=== PATIENT | male | born 1965 | race Caucasian/White ===

== ENCOUNTER 2018-12-19 09:38 | Day surgery (SDC) | payer BC, OTHER ==
[~2018-12-19 09:38] MED LIST: Acetaminophen/HYDROcodone 325-5 MG Tab PO PRN; Lactated Ringers 1,000 ML IV SCH; Midazolam 1 MG/ML 2 ML SDV ONE; Propofol 200 MG/20 ML SDV ONE; ceFAZolin 2 GM in Premix Bag 1 BAG IV SCH; fentaNYL 100 MCG/2 ML SDV ONE
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
[2018-12-19] MEDS ORDERED: Sodium Chloride 0.9% 20 ML ONE (10:45)
[2018-12-19] MEDS ORDERED: ceFAZolin 1 GM Vial ONE (10:45)
[2018-12-19] MEDS ORDERED: Bupivacaine 0.25% 10 ML SDV ONE (10:57)
--- NOTE | 2018-12-19 12:21 | PCM48HPAN ---
Post Anesthesia Note - EVALUATION WITHIN 48HRS OF ANESTHETIC Vital Signs in Normal Range: Yes Patient Participated in Evaluation: Yes Respiratory Function Stable: Yes Airway Patent: Yes Cardiovascular Function Stable: Yes Hydration Status Stable: Yes Pain Control Satisfactory: Yes Nausea and Vomiting Control Satisfactory: Yes Mental Status Recovered: Yes Resp Rate: 16
--- NOTE | 2018-12-19 12:48 | PCM.OPNOTE ---
- General Post-Op/Procedure Note Date of Surgery/Procedure: 12/19/18 Operative Procedure(s): L CTR Post-Op Diagnosis: L CTS Anesthesia Technique: Local, Moderate Sedation Primary Surgeon: Pamela Guillen Labor Contract Analyst: Sandra Leon EBL in mLs: 5 Condition: Good Free Text/Narrative:: tt= 5 min # [id number] Intake & Output 12/18/18 12/19/18 12/19/18 22:59 06:59 14:59 Intake Total 200 Balance 200
--- NOTE | 2018-12-20 06:29 | OR ---
SURGEON: Pamela Guillen MD DATE OF PROCEDURE: 12/19/2018 PREOPERATIVE DIAGNOSIS: Left carpal tunnel syndrome. POSTOPERATIVE DIAGNOSIS: Left carpal tunnel syndrome. PROCEDURE: Left carpal tunnel release, open. PRIMARY SURGEON: Pamela Guillen MD. COOK MESS: DARRYN Ballesteros. ANESTHESIA: Local with sedation. ESTIMATED BLOOD LOSS: 5 mL. TOURNIQUET TIME: 5 minutes. COMPLICATIONS: None. DVT PROPHYLAXIS: Not indicated. IMPLANTS USED: None. BRIEF HISTORY: This is a 53-year-old male who has had complaint of progressive left wrist pain. EMG/nerve conduction studies did show evidence of carpal tunnel syndrome. Due to his lack of response to conservative treatment, I did recommend surgical intervention. The risks and goals of the procedure were discussed with the patient and were documented preoperatively. He agreed to proceed. He has recently undergone a left shoulder rotator cuff repair and care was taken not to abduct or move the shoulder significantly throughout the procedure. DESCRIPTION OF PROCEDURE: The patient was properly identified and brought to the operating room. The patient was transferred from the operating room cart and placed on the operating room table in the supine position. Sedation was administered. After adequate sedation was achieved, a well-padded tourniquet was applied to the left forearm. The upper extremity was then prepped in standard fashion using ChloraPrep solution. It was then sterilely draped. A time-out was performed to ensure correct site and procedure. Preoperative antibiotics were given. The surgical site had been marked preoperatively. A mixture of 1% Lidocaine and 0.25% Marcaine were injected along the area of anticipated incision. An Esmarch was used to exsanguinate the left upper extremity and the tourniquet was inflated to 200 millimeters of mercury. A fifteen blade scalpel used to make an incision over the volar aspect of the hand. The subcutaneous tissues and palmar fascia were incised down to the level of the transverse carpal ligament. Transverse carpal ligament was then incised. Care was taken to release the ligament distally to the level of fat and proximally into the forearm. At the completion, we had good decompression of the median nerve. No other abnormalities were identified. The wound was then copiously irrigated with saline solution. The tourniquet was deflated. Electrocautery was used to maintain hemostasis. The incision site was closed with 4-0 nylon. Xeroform gauze was placed over the wound and a bulky dressing was applied. The patient was awakened from the sedation and transferred back to the operating room cart. The patient was brought to the recovery room in stable condition. All needle and sponge counts were correct. TERESITA RUSS /[id number]
== END 2018-12-19 12:35 | disposition home or self-care (01) ==
LOC: MW.SDS 09:38
PROVIDERS: ATTEND Orthopaedic Surgery
DX: G56.03 Carpal tunnel syndrome, bilateral upper limbs (principal); I25.10 Atherosclerotic heart disease of native coronary artery without angina pectoris; I10 Essential (primary) hypertension; I25.2 Old myocardial infarction; I45.10 Unspecified right bundle-branch block; E78.00 Pure hypercholesterolemia, unspecified; E88.81 Metabolic syndrome and other insulin resistance; K21.9 Gastro-esophageal reflux disease without esophagitis; F17.220 Nicotine dependence, chewing tobacco, uncomplicated; L30.9 Dermatitis, unspecified; M10.9 Gout, unspecified; M51.26 Other intervertebral disc displacement, lumbar region; M47.812 Spondylosis without myelopathy or radiculopathy, cervical region; E66.9 Obesity, unspecified; Z68.30 Body mass index [BMI] 30.0-30.9, adult; Z95.5 Presence of coronary angioplasty implant and graft; Z79.82 Long term (current) use of aspirin; Z79.899 Other long term (current) drug therapy
CPT/HCPCS: J0690; J2001; J2250; J2704; J3010; J3490; J7120

== ENCOUNTER 2019-01-14 06:40 | Day surgery (SDC) | payer BC ==
[~2019-01-14 06:40] MED LIST changes: -Acetaminophen/HYDROcodone 325-5 MG Tab PO PRN; -Midazolam 1 MG/ML 2 ML SDV ONE; -Propofol 200 MG/20 ML SDV ONE; -ceFAZolin 2 GM in Premix Bag 1 BAG IV SCH; -fentaNYL 100 MCG/2 ML SDV ONE
[2019-01-14] MEDS ORDERED: Lidocaine 1% 20 ML MDV ONE (07:18)
[2019-01-14] MEDS ORDERED: Bupivacaine 0.25% 10 ML SDV ONE (07:18)
[2019-01-14] MEDS ORDERED: ceFAZolin/Dextrose,Iso-Osmotic 2 GM/50 ML Duplex Bag IV ONE (07:52)
[2019-01-14] MEDS ORDERED: ceFAZolin 2 GM in Premix Bag 1 BAG IV SCH (08:00)
[2019-01-14] MEDS ORDERED: Acetaminophen/HYDROcodone 325-5 MG Tab PO PRN (08:00)
[2019-01-14] MEDS ORDERED: Propofol 200 MG/20 ML SDV ONE ×2 (08:10→08:12)
[2019-01-14] MEDS ORDERED: Midazolam 1 MG/ML 2 ML SDV ONE (08:11)
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
--- NOTE | 2019-01-14 09:12 | PCM.OPNOTE ---
- General Post-Op/Procedure Note Date of Surgery/Procedure: 01/14/19 Operative Procedure(s): R CTR Post-Op Diagnosis: R CTS Anesthesia Technique: Local, Moderate Sedation Primary Surgeon: Pamela Guillen Glass Presser: Sandra Leon in mLs: 5 Condition: Good Free Text/Narrative:: tt=7 min #[id number]
--- NOTE | 2019-01-14 09:48 | PCM48HPAN ---
Post Anesthesia Note - EVALUATION WITHIN 48HRS OF ANESTHETIC Vital Signs in Normal Range: Yes Patient Participated in Evaluation: Yes Respiratory Function Stable: Yes Airway Patent: Yes Cardiovascular Function Stable: Yes Hydration Status Stable: Yes Pain Control Satisfactory: Yes Nausea and Vomiting Control Satisfactory: No Mental Status Recovered: Yes Vital Signs: Last Vital Signs Temp 36.4 C 01/14/19 09:00 Pulse 61 01/14/19 09:00 Resp 14 01/14/19 09:00 BP 107/80 01/14/19 09:00 Pulse Ox 92 L 01/14/19 09:00 - COMMENTS/OBSERVATIONS Free Text/Narrative:: Patient doing well in phase II recovery. No complaints. No anesthesia complications noted.
--- NOTE | 2019-01-14 11:21 | OR ---
SURGEON: Pamela Guillen MD DATE OF PROCEDURE: 01/14/2019 PREOPERATIVE DIAGNOSIS: Right carpal tunnel syndrome. POSTOPERATIVE DIAGNOSIS: Right carpal tunnel syndrome. PROCEDURE: Right carpal tunnel release, open. PRIMARY SURGEON: Pmaela Guillen MD. BAIL BONDING AGENT: PEGGY Ballesteros. ANESTHESIA: Local with sedation. ESTIMATED BLOOD LOSS: 5 mL. TOURNIQUET TIME: 7 minutes. COMPLICATIONS: None. DVT PROPHYLAXIS: None indicated. IMPLANTS USED: None. BRIEF HISTORY: Nikolai is a 53-year-old male who has had complaint of bilateral carpal tunnel syndrome. He has previously undergone a left carpal tunnel release and has done well. He did have EMG/nerve conduction studies which confirmed carpal tunnel syndrome on the right as well. Due to his lack of response to conservative treatment, I did recommend surgical intervention. The risks and goals of the procedure were discussed with the patient and were documented preoperatively. He agreed to proceed. DESCRIPTION OF PROCEDURE: The patient was properly identified and brought to the operating room. The patient was transferred from the operating room cart and placed on the operating room table in the supine position. Sedation was administered. After adequate sedation was achieved, a well-padded tourniquet was applied to the right forearm. The upper extremity was then prepped in standard fashion using ChloraPrep solution. It was then sterilely draped. A time-out was performed to ensure correct site and procedure. Preoperative antibiotics were given. The surgical site had been marked preoperatively. A mixture of 1% Lidocaine and 0.25% Marcaine were injected along the area of anticipated incision. An Esmarch was used to exsanguinate the right upper extremity and the tourniquet was inflated to 200 millimeters of mercury. A fifteen blade scalpel used to make an incision over the volar aspect of the hand. The subcutaneous tissues and palmar fascia were incised down to the level of the transverse carpal ligament. Transverse carpal ligament was then incised. Care was taken to release the ligament distally to the level of fat and proximally into the forearm. At the completion, we had good decompression of the median nerve. No other abnormalities were identified. The wound was then copiously irrigated with saline solution. The tourniquet was deflated. Electrocautery was used to maintain hemostasis. The incision site was closed with 4-0 nylon. Xeroform gauze was placed over the wound and a bulky dressing was applied. The patient was awakened from the sedation and transferred back to the operating room cart. The patient was brought to the recovery room in stable condition. All needle and sponge counts were correct. TERESITA RUSS /[id number]
== END 2019-01-14 10:07 | disposition home or self-care (01) ==
LOC: MW.SDS 06:40
PROVIDERS: ATTEND Orthopaedic Surgery
DX: G56.01 Carpal tunnel syndrome, right upper limb (principal); M10.9 Gout, unspecified; M51.26 Other intervertebral disc displacement, lumbar region; M47.812 Spondylosis without myelopathy or radiculopathy, cervical region; I25.10 Atherosclerotic heart disease of native coronary artery without angina pectoris; K21.9 Gastro-esophageal reflux disease without esophagitis; E78.5 Hyperlipidemia, unspecified; I10 Essential (primary) hypertension; E78.00 Pure hypercholesterolemia, unspecified; I25.2 Old myocardial infarction; E66.9 Obesity, unspecified; Z68.30 Body mass index [BMI] 30.0-30.9, adult; Z95.5 Presence of coronary angioplasty implant and graft; Z79.899 Other long term (current) drug therapy; Z79.82 Long term (current) use of aspirin
CPT/HCPCS: 64721; J0690; J2001; J2250; J2704; J3490; J7120; 01810